=== PATIENT | female | born 1980 | race Two or more races ===

== ENCOUNTER 2017-12-05 13:51 | Emergency (ER) | payer OTHER ==
[~2017-12-05] VITALS: Ht 170.2 cm; Wt 65.8 kg
[2017-12-05] MEDS ORDERED: MEDROLPACK PO (16:52)
[2017-12-05] MEDS ORDERED: ZYRTEC10 MG PO (16:52)
== END 2017-12-05 17:09 | disposition home or self-care (01) ==
LOC: ER 13:51
DX: R21 Rash and other nonspecific skin eruption (principal)